=== PATIENT | male | born 1985 | race Caucasian/White ===

== ENCOUNTER 2017-09-02 10:36 | Emergency (ER) | payer OTHER ==
[2017-09-02 10:42] VITALS: BP 152/88
[2017-09-02] MEDS ORDERED: LIDOCAINE 2% 10 ML MDV SUBQ STA (10:44)
--- NOTE | 2017-09-02 10:47 | ED Physician Documentation ---
PD HPI UPPER EXT INJURY - Stated complaint Stated Complaint: LT HAND LAC - Chief complaint Chief Complaint: Laceration - History obtained from History obtained from: Patient - History of Present Illness Location: Left, Hand Type of injury: Laceration (from a pocket knife) Where injury occurred: Home Timing - onset: How many hours ago (1) Timing - duration: Hours (1) Timing - details: Abrupt onset Pain level max: 4 Pain level now: 3 Improved by: Rest Worsened by: Moving, Palpating Associated symptoms: No: Weakness, Numbness, Tingling, Swelling Contributing factors: No: Anticoagulated - Additonal information Additional information: pt is right handed. Td UTD Review of Systems Neurologic: denies: Focal weakness, Numbness PD PAST MEDICAL HISTORY - Past Medical History Past Medical History: No - Past Surgical History Past Surgical History: No - Present Medications Home Medications: Ambulatory Orders Medication Instructions Recorded Confirmed No Known Home Medications [No 09/02/17 09/02/17 Known Home Medications] - Allergies Allergies/Adverse Reactions: Allergies Allergy/AdvReac Type Severity Reaction Status Date / Time No Known Drug Allergies Allergy Verified 09/02/17 10:41 - Living Situation Living Arrangement: reports: At home - Social History Does the pt have substance abuse?: No - Immunizations Immunizations are current?: Yes Immunizations: TDAP current <10years PD ED PE NORMAL - Vitals Vital signs reviewed: Yes - General General: Alert and oriented X 3 - HEENT HEENT: Moist mucous membranes - Derm Derm: Warm and dry - Neuro Neuro: Alert and oriented X 3 PD ED PE EXPANDED - Extremities BRAULIO UE/Hands Visual: 1 - laceration (2cm, linear, NVI. normal tendon function, tested vs resistance. ) Results - Vitals Vitals: Vital Signs - 24 hr 09/02/17 10:40 Temperature 36.4 C L Heart Rate 109 H Respiratory 18 Rate Blood Pressure 152/88 H O2 Saturation 99 Oxygen O2 Source Room air Procedures - Laceration (location) L hand Length in cm: 2 Wound type: Linear, Into subcut fat, Clean Neurovascular status: Sensory intact, Motor intact, Vascular intact (brisk cap refill in index finger and thumb) Tendon involvement: Tendon intact (FROM against resistance) Anesthesia: Lidocaine 2% Wound Preparation: Irrigated copiously NS, Wound explored, To the base. No: FB identified, FB removed Skin layer closure: Nylon, Interrupted, Size #-0 - enter number (4), Sutures - enter # (5) Other: Patient tolerated well, No complications, Neurovascular intact, Dressing applied, Tetanus UTD Complexity: Simple PD MEDICAL DECISION MAKING - ED course Complexity details: considered differential, d/w patient ED course: Patient with a left hand laceration. This was was cleansed and repaired. Tolerated well. Warnings of infection and instructions on wound care given at bedside. Also counseled on how to minimize scarring. Neurovascularly intact. Brisk cap refill. No tendon injury. Full range of motion in all directions against resistance. Patient counseled regarding signs and symptoms for which I believe and urgent re-evaluation would be necessary. Patient with good understanding of and agreement to plan and is comfortable going home at this time This document was made in part using voice recognition software. While efforts are made to proofread this document, sound alike and grammatical errors may occur. - Sepsis Event Vital Signs: Vital Signs - 24 hr 09/02/17 10:40 Temperature 36.4 C L Heart Rate 109 H Respiratory 18 Rate Blood Pressure 152/88 H O2 Saturation 99 Oxygen O2 Source Room air Departure - Departure Disposition: 01 Home, Self Care Clinical Impression: Laceration of hand Qualifiers: Encounter type: initial encounter Foreign body presence: without foreign body Laterality: left Qualified Code(s): S61.412A - Laceration without foreign body of left hand, initial encounter Condition: Good Instructions: ED Laceration Hand Follow-Up: [facility] [Provider Group] (in 10-14 days for suture removal. ) Comments: Keep the wound clean. Return if you worsen including redness, swelling or drainage from the wound. The sutures should be removed in 10-14 days with your doctor. Discharge Date/Time: 09/02/17 11:15
== END 2017-09-02 11:15 | disposition home or self-care (01) ==
LOC: ED 10:36
DX: S61.412A Laceration without foreign body of left hand, initial encounter (principal)
CPT/HCPCS: 12001; 99283

== ENCOUNTER 2018-01-16 07:53 | Emergency (ER) | payer OTHER ==
[2018-01-16] MEDS ORDERED: SODIUM CHLORIDE 0.9% 1,000 ML IV ONE (08:49)
[2018-01-16] MEDS ORDERED: ONDANSETRON 4 MG/2 ML VIAL IVP STA (08:49)
--- NOTE | 2018-01-16 08:53 | ED Physician Documentation ---
History of Present Illness - Stated complaint Stated Complaint: VOMITING - Chief complaint Chief Complaint: Abd Pain - Additonal information Additional information: hx from pt 32 male [place] male 8 months of diffuse abd pain upper > lower and NV seen on [place] rx PPI sx persist now black marisol - occult blood neg at [facility] per pt sees GI for endoscopy Monday cant stop vomiting today no diarrhea no fever Review of Systems Constitutional: denies: Fever Cardiac: denies: Chest pain / pressure Respiratory: denies: Dyspnea GI: reports: Abdominal Pain, Nausea, Vomiting, Bloody / black stool. denies: Diarrhea Endocrine: denies: Easy bruising / bleeding Immunocompromised: denies: Immunocompromised PD PAST MEDICAL HISTORY - Past Medical History Past Medical History: No Cardiovascular: None Respiratory: None Neuro: None Endocrine/Autoimmune: None GI: None : None HEENT: None Psych: None Musculoskeletal: None Derm: None - Past Surgical History Past Surgical History: No - Present Medications Home Medications: Ambulatory Orders Medication Instructions Recorded Confirmed Omeprazole 1 cap PO BID 01/16/18 01/16/18 Sucralfate [Carafate] 1 gm PO ACHS #120 tablet 01/16/18 raNITIdine [Zantac] 150 mg PO BID #60 tablet 01/16/18 - Allergies Allergies/Adverse Reactions: Allergies Allergy/AdvReac Type Severity Reaction Status Date / Time No Known Drug Allergies Allergy Verified 01/16/18 08:06 - Social History Does the pt smoke?: No Smoking Status: Never smoker Does the pt drink ETOH?: Yes Does the pt have substance abuse?: No - Immunizations Immunizations are current?: Yes Immunizations: TDAP current <10years - POLST Patient has POLST: No PD ED PE NORMAL - Vitals Vital signs reviewed: Yes - Cardiac Cardiac: RRR - Respiratory Respiratory: No respiratory distress - Abdomen Abdomen: Soft, Other (mod upper abd TTP without rebound or guarding) - Derm Derm: Normal color - Neuro Neuro: Alert and oriented X 3 Results - Vitals Vitals: Vital Signs - 24 hr 01/16/18 01/16/18 07:55 11:22 Temperature 36.8 C Heart Rate 118 H 106 H Respiratory 18 16 Rate Blood Pressure 152/101 H 136/81 H O2 Saturation 97 98 Oxygen O2 Source Room air - Labs Labs: Laboratory Tests 01/16/18 01/16/18 08:53 08:53 WBC 6.0 RBC 5.16 Hgb 16.3 Hct 46.8 MCV 90.7 MCH 31.7 H MCHC 34.9 RDW 13.2 Plt Count 277 MPV 7.9 Neut # (Auto) 4.3 Lymph # (Auto) 1.1 L [place] # (Auto) 0.6 Eos # (Auto) 0.1 Baso # (Auto) 0.0 Absolute Nucleated RBC 0.00 Nucleated RBC % 0.0 Sodium 138 Potassium 3.8 Chloride 100 L Carbon Dioxide 24 Anion Gap 14.0 H BUN 12 Creatinine 1.0 Estimated GFR (MDRD) 86 L Glucose 88 Calcium 9.4 Total Bilirubin 1.1 H AST 85 H ALT 64 H Alkaline Phosphatase 64 Total Protein 8.3 H Albumin 4.9 Globulin 3.4 Albumin/Globulin Ratio 1.4 Lipase 29 - Rads (name of study) ruq sono Radiology: See rad report (neg) Departure - Departure Disposition: 01 Home, Self Care Clinical Impression: Abdominal pain Qualifiers: Abdominal location: upper abdomen, unspecified Qualified Code(s): R10.10 - Upper abdominal pain, unspecified Condition: Good Instructions: ED Epigastric Pain UKO, ED PUD Vs Gastritis Prescriptions: raNITIdine [Zantac] 150 mg PO BID #60 tablet Sucralfate [Carafate] 1 gm PO ACHS #120 tablet Comments: The labs were notable for some elevated liver tests but the ultrasound of the gallbladder was fine - the radiologist did note that you have some fatty changes to the liver - this would not cause pain but I would recommend avoiding alcohol and tylenol. I suspect the pain may be due to an ulcer I have added zantac and carafate to your omeprazole and also zofran for the vomiting Avoid spicy foods, NDAIDs such as motrin, and alcohol Please follow up with your GI doctor Monday as planned for endoscopy Return if worse Forms: Activity restrictions
[2018-01-16 08:56] LABS: BASOPHILS % (AUTO) 0.4 %; EOSINOPHILS # (AUTO) 0.1 10^3/uL (0.0-0.7); EOSINOPHILS % (AUTO) 2.1 %; HGB - HEMOGLOBIN 16.3 g/dL (14.0-18.0); LYMPHOCYTES # (AUTO) 1.1 10^3/uL (1.5-3.5); LYMPHOCYTES % (AUTO) 17.8 %; MEAN CORPUSCULAR HEMOGLOBIN 31.7 pg (27.0-31.0); MEAN CORPUSCULAR HGB CONC 34.9 g/dL (32.0-36.0); MEAN CORPUSCULAR VOLUME 90.7 fL (80.0-94.0); MEAN PLATELET VOLUME 7.9 fL (7.4-11.4); MONOCYTES # (AUTO) 0.6 10^3/uL (0.0-1.0); MONOCYTES % (AUTO) 9.2 %; NEUTROPHILS # (AUTO) 4.3 10^3/uL (1.5-6.6); NEUTROPHILS % (AUTO) 70.5 %; PLT - PLATELET COUNT 277 10^3/uL (130-450); RED BLOOD COUNT 5.16 10^6/uL (4.70-6.10); RED CELL DISTRIBUTION WIDTH 13.2 % (12.0-15.0)
[2018-01-16 09:17] LABS: ALBUMIN 4.9 g/dL (3.2-5.5); ALBUMIN/GLOBULIN RATIO 1.4 (1.0-2.2); BILIRUBIN,TOTAL 1.1 mg/dL (0.2-1.0); CALCIUM 9.4 mg/dL (8.5-10.3); TOTAL PROTEIN 8.3 g/dL (6.7-8.2)
[2018-01-16] MEDS ORDERED: PROMETHAZINE INJ 25 MG in SODIUM CHLORIDE 0.9% 50 ML IV STA (10:25)
--- NOTE | 2018-01-16 11:08 | Ultrasound Report ---
Reason: upper abd pain vomiting Procedure Date: 01/16/2018 Accession Number: [id number] / [id number] Procedure: US - Abdomen Limited CPT Code: FULL RESULT: EXAM: ABDOMEN ULTRASOUND LIMITED, RUQ EXAM DATE: 01/16/2018 10:49 AM. CLINICAL HISTORY: Upper abdominal pain, vomiting. COMPARISON: None. TECHNIQUE: Real-time scanning was performed with static images obtained. FINDINGS: Liver: The hepatic parenchyma is echogenic and heterogeneous in keeping with parenchymal disease such as steatosis. Right lobe of the liver measures at least 18.5 cm. Main portal vein flow: Hepatopetal. Gallbladder: Normal. No stones, wall thickening, or sonographic Cazares's sign. Biliary System: CBD measures 4 mm. No intrahepatic or extrahepatic ductal dilatation. Other: The visualized right kidney measures up to 10.5 cm, demonstrates preserved parenchymal flow by color Doppler and shows no hydronephrosis. IMPRESSION: Hepatic steatosis. No evidence of cholecystitis. [facility]
[2018-01-16 13:19] VITALS: BP 135/85
== END 2018-01-16 13:26 | disposition home or self-care (01) ==
LOC: ED 07:53
DX: R10.10 Upper abdominal pain, unspecified (principal)
CPT/HCPCS: 36415; 76705; 80053; 83690; 85025; 96361; 96365; 96375; 99283; J7040